=== PATIENT | male | born 1975 | race Caucasian/White ===

== ENCOUNTER 2020-12-10 19:13 | Emergency (ER) | payer OTHER ==
[~2020-12-10 19:13] MED LIST: CIPRO500 MG PO; PHENERGAN25 M1 PO
== END 2020-12-10 21:30 | disposition home or self-care (01) ==
LOC: FER 19:13
DX: S01.01XA Laceration without foreign body of scalp, initial encounter (principal); Z23 Encounter for immunization; W01.198A Fall on same level from slipping, tripping and stumbling with subsequent striking against other object, initial encounter; Y92.89 Other specified places as the place of occurrence of the external cause; Y99.0 Civilian activity done for income or pay
CPT/HCPCS: 90471; 90715